=== PATIENT | male | born 1985 | race Caucasian/White ===

== ENCOUNTER 2020-06-16 12:54 | Emergency (ER) | payer SELFPAY ==
[2020-06-16] MEDS ORDERED: cefTRIAXone\\ROCEPHIN 250 MG VIAL ONE (13:39)
[2020-06-16] MEDS ORDERED: Azithromycin 250 MG TAB ONE ×4 (13:40→13:41)
[2020-06-16] MEDS ORDERED: Sterile Water 10 ML ONE (13:43)
[2020-06-16 13:44] LABS: Bilirubin Negative (Negative); Blood, Urine Negative (Negative); Clarity Turbid (Clear); Glucose, Urine (Dipstick) Normal (Negative); Ketone, Urine Negative (Negative); Leukocyte 500 Leu/uL (Negative); Nitrite Negative (Negative); Protein, Urine (Dipstick) Negative (Neg-Trace); RBC/HPF None Seen HPF (0-3); Specific Gravity, Urine 1.006 (1.002-1.036); Squamous Epithelial None Seen HPF (0-3); Urobilinogen Normal mg/dL (Less than 2); WBC/HPF Greater than 50 HPF (0-3); pH, Urine 6.5 (5.0-9.0)
[2020-06-16 13:46] LABS: Bacteria/HPF 1+ HPF (None Seen)
[2020-06-19 20:17] LABS: Chlam.trachomatis by PCR,Urine Not Detected (NotDetected)
== END 2020-06-16 14:30 | disposition home or self-care (01) ==
LOC: ERS 12:54
DX: N34.2 Other urethritis (principal)
CPT/HCPCS: 81003; 81015; 87491; 87591; 96372; 99283; J0696